=== PATIENT | female | born 1955 | race Caucasian/White ===

== ENCOUNTER 2017-04-22 18:30 | Emergency (ER) | payer OTHER ==
[2017-04-22 18:39] VITALS: TEMP 97.7
[2017-04-22 18:58] LABS: PLATELET COUNT 118 10^3/uL (150-400)
--- NOTE | 2017-04-22 19:03 | EDPHY ---
H & P Stated Complaint: increased confusion,urinary incont - Personal History Current Tetanus/Diphtheria Vaccine: Yes Current Tetanus Diphtheria and Acellular Pertussis (TDAP): Yes - Medical/Surgical History Hx Asthma: Yes Hx Chronic Respiratory Disease: No Hx Diabetes: No Hx Cardiac Disease: No Hx Renal Disease: No Hx Cirrhosis: No Hx Alcoholism: No Hx HIV/AIDS: No Hx Splenectomy or Spleen Trauma: No Other PMH: asthma, acid reflux, mild sleep apnea (wears 3 L oxygen at home at night), glioblastoma - Social History Smoking Status: Former smoker Time Seen by Provider: 04/22/17 18:33 HPI/ROS: Chief Complaint: Confusion, vision changes, history of GBM HPI: 62-year-old woman with a history of a glioblastoma multiforme diagnosed 2 years ago. Patient is presenting with worsening confusion and vision changes. states that he has noticed increasing confusion over the last 3 weeks but in the last 24 hr had noticed significant change in her confusion, ability to speak. Patient is also complaining of vision changes in unable to read the newspaper. Patient's has had stable cognition over the last urine half or so. She did have similar episodes to this about 15 months ago when she had a intraparenchymal bleed. She is currently visiting from [place] where she gets her usual care at the [facility]. She had an MRI on the 10th of last month. That MRI showed as follows: 1. Interval increase in the size of an enhancing lesions centered at left thalamus 2. New 1 cm enhancing lesion in the left superior temporal gyrus 3. Corresponding increase in associated nonenhancing FLAIR signal abnormality 4. No significant interval change in the size of enhancing lesion centered at the splenium of the corpus callosum 5. Unchanged 0.7 cm right parietal meningioma The patient is currently on Xarelto secondary to bilateral PEs I urine half ago as well. ROS: 10 point Review of Systems is negative except as noted in the HPI. PMH: Glioblastoma multiforme, PEs, hypertension Social History: No smoking, no alcohol, no recreational drug use Family History: non-contributory Physical Exam: Gen: Awake, Alert, No Distress HEENT: Nose: no rhinorrhea Eyes: PERRLA, EOMI Mouth: Moist mucosa Neck: Supple, no JVD Chest: nontender, lungs clear to auscultation Heart: S1, S2 normal, no murmur Abd: Soft, non-tender, no guarding Back: no CVA tenderness, no midline tenderness Ext: no edema, non-tender Skin: no rash Neuro: CN II-XII intact, Sensation grossly intact, Strength 5/5 in bilateral upper and lower extremities, patient has a moderate expressive aphasia (Darshan Martinez) Constitutional: Initial Vital Signs Temperature (C) 36.5 C 04/22/17 18:30 Heart Rate 83 04/22/17 18:30 Respiratory Rate 16 04/22/17 18:30 Blood Pressure 132/84 H 04/22/17 18:30 O2 Sat (%) 97 04/22/17 18:30 O2 Delivery Mode Room Air Allergies/Adverse Reactions: No Known Allergies Allergy (Verified 02/03/16 17:23) Home Medications: Medication Instructions Recorded levETIRACETAM [KEPPRA XR 500 mg] 500 mg PO DAILY 02/03/16 Lisinopril 04/22/17 Pembrolizumab 04/22/17 Xarelto 04/22/17 Medical Decision Making - Diagnostics Imaging: Discussed imaging studies w/ call specialist Radiologist - Diagnostics Imaging Results: Imaging Impressions Head CT 04/22/17 18:53 Impression: Progressive extensive white matter changes, as above-detailed, now more left-sided than right-sided, suggestive of advancing gliomatosis cerebri. There is no acute intracranial hemorrhage observed. Findings were discussed with Darshan Martinez MD at 19:41, on 04/22/2017. If there is further clinical concern regarding the patient's symptoms, MR imaging is suggested, if not otherwise contraindicated. Brain MRI 04/22/17 20:00 Impression: 1. Stable appearance of the abnormal enhancement associated with the splenium of the corpus callosum. 2. Interval increase in the size of enhancing lesions at the level of the lateral left thalamus and the left superior temporal gyrus, compared to 2017. 3. More pronounced nonenhancing T2 FLAIR signal abnormality involving the white matter, left greater than right, and now extending more posteromedially into the temporal lobes, along the left pontomesencephalic junction, and into the left optic chiasm. 4. Stable right superior parietal subcentimeter meningioma. Findings were discussed with Kwasi Smith MD at 0:09, on 04/23/2017. ED Course/Re-evaluation: Patient has worsening confusion with a history of glioblastoma multiforme. CT scan of the head here shows no intracranial bleeding. I have discussed with Dr. Gipson, neurosurgery. He is recommending MRI at this point to evaluate for any potential lesion that would be amenable to surgical intervention. I have discussed at length with the family and they understand that given that there is no acute bleed that the symptoms are likely secondary to progression of the tumor. They would like the MRI at this point for comparison to the recent 1 also to be able to communicate with their Neuro oncologist in [place]. The patient is signed out to Dr. Rey pending MRI results and further consultation with Neurosurgery. (Darshan Martinez) [id number]: Patient's MRI results were called to me by Dr. Steve Elder. The lesions that seen on her brain MRI in March are worse. There appears to be a new lesion along the optic nerve. I have updated the at bedside. They would like to go home tonight they do not want to be admitted to the hospital. They will review this MRI tonight with their physician in [place]. (Kwasi Lipscomb) - Data Points Laboratory Results: Laboratory Results 04/22/17 18:50 04/22/17 18:50 04/22/17 04/22/17 04/22/17 19:08 18:52 18:50 WBC RBC Hgb Hct MCV MCH MCHC RDW Plt Count MPV Neut % (Auto) Lymph % (Auto) [place] % (Auto) Eos % (Auto) Baso % (Auto) Nucleat RBC Rel Count Absolute Neuts (auto) Absolute Lymphs (auto) Absolute Monos (auto) Absolute Eos (auto) Absolute Basos (auto) Absolute Nucleated RBC Immature Gran % Immature Gran # PT 21.9 SEC H SEC (12.0-15.0) INR 1.90 H (0.83-1.16) Sodium 146 mEq/L H mEq/L (135-145) Potassium 4.2 mEq/L mEq/L (3.5-5.2) Chloride 107 mEq/L mEq/L (97-110) Carbon Dioxide 25 mEq/l mEq/l (22-31) Anion Gap 14 mEq/L mEq/L (8-16) BUN 18 mg/dL mg/dL (7-23) Creatinine 0.8 mg/dL mg/dL (0.6-1.0) Estimated GFR > 60 Glucose 93 mg/dL mg/dL (70-100) Calcium 9.2 mg/dL mg/dL (8.5-10.4) Urine RBC 1-3 /hpf /hpf (0-3) Urine WBC 1-3 /hpf /hpf (0-3) Ur Epithelial Cells TRACE /lpf /lpf (NONE-1+) Urine Bacteria 3+ /hpf H /hpf (NONE SEEN) Urine Mucus TRACE /lpf /lpf (NONE-1+) 04/22/17 04/22/17 18:50 18:50 WBC 4.77 10^3/uL 10^3/uL (3.80-9.50) RBC 3.68 10^6/uL L 10^6/uL (4.18-5.33) Hgb 12.2 g/dL L g/dL (12.6-16.3) Hct 36.7 % L % (38.0-47.0) MCV 99.7 fL fL (81.5-99.8) MCH 33.2 pg pg (27.9-34.1) MCHC 33.2 g/dL g/dL (32.4-36.7) RDW 13.3 % % (11.5-15.2) Plt Count 118 10^3/uL L 10^3/uL (150-400) MPV 9.7 fL fL (8.7-11.7) Neut % (Auto) 63.1 % % (39.3-74.2) Lymph % (Auto) 25.4 % % (15.0-45.0) [place] % (Auto) 8.4 % % (4.5-13.0) Eos % (Auto) 2.1 % % (0.6-7.6) Baso % (Auto) 0.8 % % (0.3-1.7) Nucleat RBC Rel Count 0.0 % % (0.0-0.2) Absolute Neuts (auto) 3.01 10^3/uL 10^3/uL (1.70-6.50) Absolute Lymphs (auto) 1.21 10^3/uL 10^3/uL (1.00-3.00) Absolute Monos (auto) 0.40 10^3/uL 10^3/uL (0.30-0.80) Absolute Eos (auto) 0.10 10^3/uL 10^3/uL (0.03-0.40) Absolute Basos (auto) 0.04 10^3/uL 10^3/uL (0.02-0.10) Absolute Nucleated RBC 0.00 10^3/uL 10^3/uL (0-0.01) Immature Gran % 0.2 % % (0.0-1.1) Immature Gran # 0.01 10^3/uL 10^3/uL (0.00-0.10) PT REJ INR REJ Sodium Potassium Chloride Carbon Dioxide Anion Gap BUN Creatinine Estimated GFR Glucose Calcium Urine RBC Urine WBC Ur Epithelial Cells Urine Bacteria Urine Mucus Departure - Departure Disposition: Home, Routine, Self-Care Clinical Impression: Glioblastoma Condition: Fair Instructions: Glioblastoma (DC) Referrals: Ruiz Avery MD [Primary Care Provider] - As per Instructions
[2017-04-22 19:26] LABS: INR 1.9 (0.83-1.16); PROTIME(PATIENT) 21.9 SEC (12.0-15.0)
[2017-04-22 19:52] VITALS: O2SAT 95
[2017-04-22] MEDS ORDERED: GADOBUTROL 10 ML VIAL IVP ONE (22:52)
[2017-04-23 00:31] VITALS: PULSE 60
[2017-04-23 00:35] VITALS: BP 135/78; RESP 14
== END 2017-04-23 00:35 | disposition home or self-care (01) ==
DX: C71.9 Malignant neoplasm of brain, unspecified (principal); J45.909 Unspecified asthma, uncomplicated; I10 Essential (primary) hypertension; Z79.01 Long term (current) use of anticoagulants; Z87.891 Personal history of nicotine dependence
CPT/HCPCS: A9585

== ENCOUNTER → 2018-02-27 | Outpatient (CLI) | payer OTHER ==
[~2018-02-27] MED LIST: GADOBUTROL 10 ML VIAL IVP ONE
== END ==
LOC: FIMAGING 08:07
PROVIDERS: ATTEND Internal Medicine Hematology & Oncology
DX: C71.8 Malignant neoplasm of overlapping sites of brain (principal)
CPT/HCPCS: 70553; A9585; J1642